=== PATIENT | female | born 1935 | race Caucasian/White ===

== ENCOUNTER 2016-09-13 19:46 | Emergency (ER) | payer MEDICARE ==
[~2016-09-13] VITALS: Ht 162.6 cm; Wt 77.1 kg
[2016-09-13 20:00] VITALS: BP 174/79
[2016-09-13] MEDS ORDERED: AMOX500C PO (20:11)
--- NOTE | 2016-09-13 20:11 | PHYS DOC ---
Past Medical History Past Medical History: GERD, High Cholesterol, Hypertension, Other Additional Past Medical Histor: NEUROPATHY Past Surgical History: Hysterectomy, Knee Replacement, Other Additional Past Surgical Histo: GASTRIC BYPASS Alcohol Use: Rarely Drug Use: None Adult General Chief Complaint Chief Complaint: COUGH HPI HPI Patient is a 80 year old female presents emergency department stating that she' s had a cough for the last 2 days. She states that she has some nasal congestion. She states that she went to the [facility] and they had recommended magnesium which she states that she check and seem to felt a little bit better. She states that she is having a cough that is nonproductive denies any fever, chills or any nausea or vomiting. Review of Systems Review of Systems Constitutional: Denies fever or chills [] Eyes: Denies change in visual acuity, redness, or eye pain [] HENT: Denies nasal congestion or sore throat [] Respiratory: cough denies shortness of breath [] Cardiovascular: No additional information not addressed in HPI [] GI: Denies abdominal pain, nausea, vomiting, bloody stools or diarrhea [] : Denies dysuria or hematuria [] Musculoskeletal: Denies back pain or joint pain [] Integument: Denies rash or skin lesions [] Neurologic: Denies headache, focal weakness or sensory changes [] Endocrine: Denies polyuria or polydipsia [] Allergies Allergies Allergies Coded Allergies Type Severity Reaction Last Updated Verified MILEY Inhibitors Allergy Intermediate 08/22/14 No bacitracin Allergy Intermediate 08/22/14 No iodine Allergy Intermediate 08/22/14 No neomycin Allergy Intermediate 08/22/14 No polymyxin B Allergy Intermediate 08/22/14 No Physical Exam Physical Exam Constitutional: Well developed, well nourished, no acute distress, non-toxic appearance. [] HENT: Normocephalic, atraumatic, bilateral external ears normal, oropharynx moist, no oral exudates, nose normal. Bilateral tympanic membranes appear to be normal. Patient with maxillary sinus tenderness, no frontal sinus tenderness noted. Patient with postnasal drip noted with redness noted no exudate no erythematous. Eyes: PERRLA, EOMI, conjunctiva normal, no discharge. [] Neck: Normal range of motion, no tenderness, supple, no stridor. [] Cardiovascular:Heart rate regular rhythm, no murmur [] Lungs & Thorax: Bilateral breath sounds clear to auscultation [] Skin: Warm, dry, no erythema, no rash. [] Back: No tenderness Extremities: No tenderness, no cyanosis, no clubbing, ROM intact, no edema. [] Neurologic: Alert and oriented X 3, normal motor function, normal sensory function, no focal deficits noted. [] Psychologic: Affect normal, judgement normal, mood normal. [] Current Patient Data Vital Signs Vital Signs Date Time Temp Pulse Resp B/P (MAP) Pulse Ox O2 Delivery O2 Flow Rate FiO2 09/13/16 20:00 98.8 75 18 95 Room Air 98.8 EKG EKG [] Radiology/Procedures Radiology/Procedures [] Course & Med Decision Making Course & Med Decision Making Pertinent Labs and Imaging studies reviewed. (See chart for details) Patient was recommended to take Coricidin HBP patient will be recommended to take medication as prescribed. Recommended plenty of fluids such as water propel or Gatorade. Recommended following up with primary care physician next 3- 5 days. Signs symptoms to return back to emergency department as been provided. [] Dragon Disclaimer Dragon Disclaimer This electronic medical record was generated, in whole or in part, using a voice recognition dictation system. Departure Departure Impression: Primary Impression: URI (upper respiratory infection) Disposition: 01 HOME, SELF-CARE Condition: STABLE Referrals: YOVANI BANDA (PCP) Patient Instructions: Upper Respiratory Infection, Adult, [id number] Additional Instructions: Activity as tolerated. Coricidin HBP may be taken for your congestion. Medication as prescribed. Continue her home medication as prescribed. Drink plenty of fluids. Follow-up to primary care physician in next 3-5 days. Return back to emergency prior signs symptoms become worse. Scripts Amoxicillin (AMOXICILLIN) 500 Mg Capsule 1 CAP PO BID, #20 CAP Prov: LUZ ROOT APRN 09/13/16 LUZ ROOT APRN Sep 13, 2016 20:11
== END 2016-09-13 20:20 | disposition home or self-care (01) ==
LOC: ER 19:46
DX: J06.9 Acute upper respiratory infection, unspecified (principal); K21.9 Gastro-esophageal reflux disease without esophagitis; E78.00 Pure hypercholesterolemia, unspecified; I10 Essential (primary) hypertension; G62.9 Polyneuropathy, unspecified; Z90.710 Acquired absence of both cervix and uterus; Z96.659 Presence of unspecified artificial knee joint; Z98.84 Bariatric surgery status; Z88.8 Allergy status to other drugs, medicaments and biological substances; Z88.1 Allergy status to other antibiotic agents
CPT/HCPCS: 99283

== ENCOUNTER 2016-12-27 11:53 | Emergency (ER) | payer MEDICARE ==
[~2016-12-27] VITALS: Ht 162.6 cm; Wt 77.1 kg
[~2016-12-27 11:53] MED LIST: AMOX500C PO
[2016-12-27 12:20] VITALS: BP 169/72
[2016-12-27] MEDS ORDERED: CEPH-264 PO (12:39)
--- NOTE | 2016-12-27 12:40 | PHYS DOC ---
Past Medical History Past Medical History: GERD, High Cholesterol, Hypertension, Other Additional Past Medical Histor: NEUROPATHY Past Surgical History: Hysterectomy, Knee Replacement, Other Additional Past Surgical Histo: GASTRIC BYPASS Alcohol Use: Rarely Drug Use: None Adult General Chief Complaint Chief Complaint: L[facility]ATION[facility] HPI Patient is a 81 year old female presents to the emergency department with complaints of a laceration to the right lower extremity. She states 2 weeks ago she was opening a car door when she sustained a laceration to the right lower extremity. She has been taking care of this at home by placing dressings and OpSite on it. She presents today because it has persistent bleeding was slightly redness around the wound. Review of Systems Review of Systems Constitutional: Denies fever or chills [] Eyes: Denies change in visual acuity, redness, or eye pain [] HENT: Denies nasal congestion or sore throat [] Respiratory: Denies cough or shortness of breath [] Cardiovascular: No additional information not addressed in HPI [] GI: Denies abdominal pain, nausea, vomiting, bloody stools or diarrhea [] : Denies dysuria or hematuria [] Musculoskeletal: Denies back pain or joint pain [] Integument: Laceration Neurologic: Denies headache, focal weakness or sensory changes [] Endocrine: Denies polyuria or polydipsia [] Allergies Allergies Allergies Coded Allergies Type Severity Reaction Last Updated Verified MILEY Inhibitors Allergy Intermediate 08/22/14 No bacitracin Allergy Intermediate 08/22/14 No iodine Allergy Intermediate 08/22/14 No neomycin Allergy Intermediate 08/22/14 No polymyxin B Allergy Intermediate 08/22/14 No Physical Exam Physical Exam Constitutional: Well developed, well nourished, no acute distress, non-toxic appearance. [] Neck: Normal range of motion, no tenderness, supple without lymphadenopathy, no stridor. [] Cardiovascular:Heart rate regular rhythm, no murmur [] Lungs & Thorax: Bilateral breath sounds clear to auscultation [] Skin: Right lower extremity, anterior to the lateral aspect of the tibia there is a 6 cm laceration with some granulation noted. There is noted foreign body embedded in the tissue. There is surrounding erythema approximately 2 cm. There is no purulent discharge. There is no active bleeding at time of exam. Extremities: No tenderness, no cyanosis, no clubbing, ROM intact, no edema. [] Neurologic: Alert and oriented X 3, normal motor function, normal sensory function, no focal deficits noted. [] Psychologic: Affect normal, judgement normal, mood normal. [] EKG EKG [] Radiology/Procedures Radiology/Procedures [] Course & Med Decision Making Course & Med Decision Making Pertinent Labs and Imaging studies reviewed. (See chart for details) []Agents wound was cleansed with Betadine and normal saline. The wound was debrided, foreign body removed. The underlying tissue is well granulated. The wound was dressed with a bulky bandage. Patient tolerated procedure well. Landing will be be to discharge patient home on Keflex with wound care instructions. Dragon Disclaimer Dragon Disclaimer This electronic medical record was generated, in whole or in part, using a voice recognition dictation system. Departure Departure Impression: Primary Impression: Leg wound, right Disposition: 01 HOME, SELF-CARE Condition: STABLE Referrals: YOVANI BANDA (PCP) Patient Instructions: Wound Care, [id number] Additional Instructions: Follow-up with your primary care provider in 3-5 days. Sooner proms rise. He may return to the emergency Department for new symptoms or concerns or worsening of current condition. Scripts Cephalexin (KEFLEX) 500 Mg Capsule 1 CAP PO TID, #30 CAP Prov: JOSTIN SORENSON APRN 12/27/16 Problem Qualifiers Primary Impression: Leg wound, right Encounter type: initial encounter Qualified Codes: S81.801A - Unspecified open wound, right lower leg, initial encounter JOSTIN SORENSON APRN Dec 27, 2016 12:40
== END 2016-12-27 12:46 | disposition home or self-care (01) ==
LOC: ER 11:53
DX: S81.821A Laceration with foreign body, right lower leg, initial encounter (principal); K21.9 Gastro-esophageal reflux disease without esophagitis; E78.00 Pure hypercholesterolemia, unspecified; I10 Essential (primary) hypertension; G62.9 Polyneuropathy, unspecified; Z90.710 Acquired absence of both cervix and uterus; Z96.659 Presence of unspecified artificial knee joint; Z98.84 Bariatric surgery status; Z88.8 Allergy status to other drugs, medicaments and biological substances; Z88.1 Allergy status to other antibiotic agents; W26.8XXA Contact with other sharp object(s), not elsewhere classified, initial encounter; Y93.89 Activity, other specified; Y92.89 Other specified places as the place of occurrence of the external cause; Y99.8 Other external cause status
CPT/HCPCS: 99284

== ENCOUNTER 2017-01-01 02:35 | Emergency (ER) | payer MEDICARE ==
[~2017-01-01] VITALS: Ht 162.6 cm; Wt 77.1 kg
[~2017-01-01 02:35] MED LIST changes: +CEPH-264 PO
[2017-01-01 02:46] VITALS: BP 196/92
--- NOTE | 2017-01-01 03:22 | PHYS DOC ---
Past Medical History Past Medical History: GERD, High Cholesterol, Hypertension, Other Additional Past Medical Histor: NEUROPATHY Past Surgical History: Hysterectomy, Knee Replacement, Other Additional Past Surgical Histo: GASTRIC BYPASS Alcohol Use: Rarely Drug Use: None Adult General Chief Complaint Chief Complaint: MECHANICAL FALL HPI HPI Patient is a 81 year old female who presents with complaint of head injury. Patient states that she awoke in the middle the night shortly prior to arrival after her phone started ringing. Patient tried to answer the phone, however upon getting up to the phone she lost her footing and fell, hitting the back of her head on a coffee table in the process. Patient denies loss of consciousness. Patient denies any other injuries. The patient came into the emergency department due to a laceration suffered as result of the fall. Patient otherwise denies any injuries. Patient states that she has chronically poor balance but states that this has not changed significantly over the past few days. Patient is not on any blood thinners. Review of Systems Review of Systems Constitutional: Denies fever or chills [] Eyes: Denies change in visual acuity, redness, or eye pain [] HENT: Head injury, scalp laceration.[] Respiratory: Denies cough or shortness of breath [] Cardiovascular: Edema, denies chest pain[] GI: Denies abdominal pain, nausea, vomiting, bloody stools or diarrhea [] : Denies dysuria or hematuria [] Musculoskeletal: Denies back pain or joint pain [] Integument: Denies rash or skin lesions [] Neurologic: Denies headache, focal weakness or sensory changes [] Current Medications Current Medications Current Medications Medications (Trade) Dose Ordered Sig/Barbara Start Time Stop Time Status Last Admin Dose Admin Lidocaine/ Epinephrine (Let Topical) 3 ml 1X ONCE 01/01/17 03:30 01/01/17 03:31 DC 01/01/17 03:23 3 ML Allergies Allergies Allergies Coded Allergies Type Severity Reaction Last Updated Verified MILEY Inhibitors Allergy Intermediate 08/22/14 No bacitracin Allergy Intermediate 08/22/14 No iodine Allergy Intermediate 08/22/14 No neomycin Allergy Intermediate 08/22/14 No polymyxin B Allergy Intermediate 08/22/14 No Physical Exam Physical Exam Constitutional: Alert, afebrile, appears in mild discomfort. [] HENT: Normocephalic, 1.5 cm linear occipital laceration with 2 cm underlying scalp hematoma, bilateral external ears normal, oropharynx moist, no oral exudates, nose normal. [] Eyes: PERRLA, EOMI, conjunctiva normal, no discharge. [] Neck: Normal range of motion, no tenderness, supple, no stridor. [] Cardiovascular:Heart rate regular rhythm, no murmur [] Lungs & Thorax: Bilateral breath sounds clear to auscultation [] Abdomen: Bowel sounds normal, soft, no tenderness, no masses, no pulsatile masses. [] Skin: Warm, dry, no erythema, no rash. [] Back: No tenderness, no CVA tenderness. [] Extremities: No tenderness, no cyanosis, no clubbing, ROM intact, 1+ pitting edema in the bilateral lower extremities. [] Neurologic: Alert and oriented X 3, normal motor function, normal sensory function, no focal deficits noted. [] Current Patient Data Vital Signs Vital Signs Date Time Temp Pulse Resp B/P (MAP) Pulse Ox O2 Delivery O2 Flow Rate FiO2 01/01/17 02:46 98.3 66 16 97 Room Air 98.3 EKG EKG Not performed[] Radiology/Procedures Radiology/Procedures [facility] [address] [place] [address] IMAGING REPORT Signed PATIENT: JANIYA OTOOLE ACCOUNT: [id number] : 1935 LOCATION: ER AGE: 81 SEX: F EXAM STATUS: REG ER ORD. PHYSICIAN: ANABEL BENNETT MD REASON: fall, head injury PROCEDURE: CT HEAD WO CONTRAST CT head without contrast 01/01/2017 CLINICAL INDICATION: Fall, head trauma. COMPARISON: CT head 10/06/2014. TECHNIQUE: Multiple CT images of the head were obtained without contrast according to standard protocol. *One or more of the following individualized dose reduction techniques were utilized for this examination: 1. Automated exposure control. 2. Adjustment of the mA and/or kV according to patient size. 3. Use of iterative reconstruction technique. Findings: Head: There is mild prominence of the ventricles and subarachnoid spaces compatible with mild age-related involutional changes. No acute intracranial hemorrhage or extra-axial fluid collection. There is stable punctate low-attenuation in the right posterior limb internal capsule, may represent old lacunar infarct. Knox-white matter interfaces are otherwise maintained. The basal cisterns are patent. No midline shift or mass effect. There is partial opacification of the right maxillary sinus with internal high density. IMPRESSION: 1. No acute intracranial hemorrhage or mass effect. 2. 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 3. Partial opacification of right maxillary sinus with internal hypodensity which can be seen with fungal sinusitis. Electronically signed by: Stalin Sue MD (01/01/2017 3:59 AM) [facility] [place] DICTATED and SIGNED BY: STALIN SUE MD DATE: 01/01/17 0354 CC: YOVANI BANDA; ANABEL BENNETT MD ~ [] Course & Med Decision Making Course & Med Decision Making Pertinent Labs and Imaging studies reviewed. (See chart for details) CT negative for acute intracranial bleeding. Patient did have an incidental finding of right sinus opacification. Spoke with patient regarding this finding. I have low suspicion the patient has active sinusitis as patient denies any sinus pressure, pain, or associated fever. I did recommend that she follow-up with her primary doctor for this finding for further evaluation as outpatient. The patient's laceration was repaired in the emergency department as outlined in the procedure note. Recommended that the patient follow-up with her primary doctor in 5-7 days for removal of nancy. Advised return emergency department for any worsening symptoms. Patient was understanding and in agreement with treatment plan. Dragon Disclaimer Dragon Disclaimer This electronic medical record was generated, in whole or in part, using a voice recognition dictation system. Laceration Repair Lac Repair Indication: Scalp laceration Procedure: The patient was placed in the appropriate position and anesthesia around the laceration was achieved with topical application of LET. The area was then cleansed with saline soaked gauze. The laceration was closed using skin nancy. The wound area was then dressed with gauze and Kerlix. Total repaired wound length: 2 cm. Other Items: Stable count: 3 The patient tolerated the procedure without difficulty. Complications: None. Departure Departure Impression: Primary Impression: Scalp laceration Additional Impression: Closed head injury Disposition: 01 HOME, SELF-CARE Condition: IMPROVED Referrals: YOVANI BANDA (PCP) Patient Instructions: Head Injury, Adult, Laceration Care, Adult, Staple Wound Closure, [id number] Additional Instructions: Follow-up in 5-7 days with your primary doctor for removal of your nancy. Your CT scan showed an incidental finding of an abnormal lesion in your right sinus. It is recommended that she follow-up with your primary doctor for reevaluation of this finding. Return to the emergency department for any worsening symptoms. Problem Qualifiers Primary Impression: Scalp laceration Encounter type: initial encounter Qualified Codes: S01.01XA - Laceration without foreign body of scalp, initial encounter Additional Impression: Closed head injury Encounter type: initial encounter Qualified Codes: S09.90XA - Unspecified injury of head, initial encounter ANABEL BENNETT MD Jan 01, 2017 03:22
[2017-01-01] MEDS ORDERED: LIDOCAINE/EPI/TETRACAINE TOPICAL GEL 3 ML. TP ONE (03:30)
--- NOTE | 2017-01-01 04:02 | RAD ---
CT head without contrast 01/01/2017 CLINICAL INDICATION: Fall, head trauma. COMPARISON: CT head 10/06/2014. TECHNIQUE: Multiple CT images of the head were obtained without contrast according to standard protocol. *One or more of the following individualized dose reduction techniques were utilized for this examination: 1. Automated exposure control. 2. Adjustment of the mA and/or kV according to patient size. 3. Use of iterative reconstruction technique. Findings: Head: There is mild prominence of the ventricles and subarachnoid spaces compatible with mild age-related involutional changes. No acute intracranial hemorrhage or extra-axial fluid collection. There is stable punctate low-attenuation in the right posterior limb internal capsule, may represent old lacunar infarct. Knox-white matter interfaces are otherwise maintained. The basal cisterns are patent. No midline shift or mass effect. There is partial opacification of the right maxillary sinus with internal high density. IMPRESSION: 1. No acute intracranial hemorrhage or mass effect. 2. 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 3. Partial opacification of right maxillary sinus with internal hypodensity which can be seen with fungal sinusitis. Electronically signed by: Tulio Sue MD (01/01/2017 3:59 AM) [facility]
== END 2017-01-01 04:17 | disposition home or self-care (01) ==
LOC: ER 02:35
DX: S01.01XA Laceration without foreign body of scalp, initial encounter (principal); K21.9 Gastro-esophageal reflux disease without esophagitis; E78.00 Pure hypercholesterolemia, unspecified; I10 Essential (primary) hypertension; G62.9 Polyneuropathy, unspecified; Z98.84 Bariatric surgery status; Z88.1 Allergy status to other antibiotic agents; Z88.8 Allergy status to other drugs, medicaments and biological substances; W01.190A Fall on same level from slipping, tripping and stumbling with subsequent striking against furniture, initial encounter; Y93.89 Activity, other specified; Y92.89 Other specified places as the place of occurrence of the external cause; Y99.8 Other external cause status
CPT/HCPCS: 12001; 70450; 99284-25

== ENCOUNTER → 2017-01-15 | Outpatient (CLI) | payer MEDICARE ==
[2017-01-01 02:46] VITALS: BP 196/92
[~2017-01-15] MED LIST changes: +HYDR-971 PO
== END | disposition home or self-care (01) ==
LOC: PMGWOUND 10:56
PROVIDERS: ATTEND Emergency Medicine Undersea and Hyperbaric Medicine
DX: I87.311 Chronic venous hypertension (idiopathic) with ulcer of right lower extremity (principal); L97.212 Non-pressure chronic ulcer of right calf with fat layer exposed; K21.9 Gastro-esophageal reflux disease without esophagitis; G62.9 Polyneuropathy, unspecified; E66.8 Other obesity; I13.0 Hypertensive heart and chronic kidney disease with heart failure and stage 1 through stage 4 chronic kidney disease, or unspecified chronic kidney disease; N18.4 Chronic kidney disease, stage 4 (severe); I50.32 Chronic diastolic (congestive) heart failure; I73.9 Peripheral vascular disease, unspecified; F32.9 Major depressive disorder, single episode, unspecified; E78.00 Pure hypercholesterolemia, unspecified; E03.9 Hypothyroidism, unspecified; Z90.710 Acquired absence of both cervix and uterus; Z72.89 Other problems related to lifestyle
CPT/HCPCS: 97597

== ENCOUNTER → 2017-01-22 | Outpatient (CLI) | payer MEDICARE ==
[2017-01-01 02:46] VITALS: BP 196/92
[~2017-01-22] MED LIST changes: -HYDR-971 PO
== END | disposition home or self-care (01) ==
LOC: PMGWOUND 11:05
PROVIDERS: ATTEND Emergency Medicine Undersea and Hyperbaric Medicine
DX: I87.311 Chronic venous hypertension (idiopathic) with ulcer of right lower extremity (principal); L97.212 Non-pressure chronic ulcer of right calf with fat layer exposed; I13.0 Hypertensive heart and chronic kidney disease with heart failure and stage 1 through stage 4 chronic kidney disease, or unspecified chronic kidney disease; N18.4 Chronic kidney disease, stage 4 (severe); I50.32 Chronic diastolic (congestive) heart failure; K21.9 Gastro-esophageal reflux disease without esophagitis; E03.9 Hypothyroidism, unspecified; F32.9 Major depressive disorder, single episode, unspecified; E66.8 Other obesity; I73.9 Peripheral vascular disease, unspecified; G62.9 Polyneuropathy, unspecified; E78.00 Pure hypercholesterolemia, unspecified; Z96.659 Presence of unspecified artificial knee joint; Z72.89 Other problems related to lifestyle; Z90.710 Acquired absence of both cervix and uterus
CPT/HCPCS: 11042; 29581

== ENCOUNTER → 2017-01-25 | Outpatient (CLI) | payer MEDICARE ==
[2017-01-01 02:46] VITALS: BP 196/92
== END | disposition home or self-care (01) ==
LOC: PMGWOUND 11:29
PROVIDERS: ATTEND Preventive Medicine Undersea and Hyperbaric Medicine
DX: I87.311 Chronic venous hypertension (idiopathic) with ulcer of right lower extremity (principal); L97.212 Non-pressure chronic ulcer of right calf with fat layer exposed; I13.0 Hypertensive heart and chronic kidney disease with heart failure and stage 1 through stage 4 chronic kidney disease, or unspecified chronic kidney disease; N18.4 Chronic kidney disease, stage 4 (severe); I50.32 Chronic diastolic (congestive) heart failure; K21.9 Gastro-esophageal reflux disease without esophagitis; I73.9 Peripheral vascular disease, unspecified; F32.9 Major depressive disorder, single episode, unspecified; E78.00 Pure hypercholesterolemia, unspecified; E03.9 Hypothyroidism, unspecified; Z72.89 Other problems related to lifestyle
CPT/HCPCS: 29581

== ENCOUNTER → 2017-01-29 | Outpatient (CLI) | payer MEDICARE ==
[2017-01-01 02:46] VITALS: BP 196/92
== END | disposition home or self-care (01) ==
LOC: PMGWOUND 11:04
PROVIDERS: ATTEND Emergency Medicine Undersea and Hyperbaric Medicine
DX: I87.311 Chronic venous hypertension (idiopathic) with ulcer of right lower extremity (principal); L97.212 Non-pressure chronic ulcer of right calf with fat layer exposed; S51.811D Laceration without foreign body of right forearm, subsequent encounter; K21.9 Gastro-esophageal reflux disease without esophagitis; E03.9 Hypothyroidism, unspecified; F32.9 Major depressive disorder, single episode, unspecified; E78.00 Pure hypercholesterolemia, unspecified; I73.9 Peripheral vascular disease, unspecified; I13.0 Hypertensive heart and chronic kidney disease with heart failure and stage 1 through stage 4 chronic kidney disease, or unspecified chronic kidney disease; N18.4 Chronic kidney disease, stage 4 (severe); E66.8 Other obesity; G62.9 Polyneuropathy, unspecified; Z90.710 Acquired absence of both cervix and uterus; Z72.89 Other problems related to lifestyle; X58.XXXD Exposure to other specified factors, subsequent encounter
CPT/HCPCS: 29581; 97597

== ENCOUNTER → 2017-02-05 | Outpatient (CLI) | payer MEDICARE | END | disposition home or self-care (01) | LOC: PMGWOUND 11:15 | PROVIDERS: ATTEND Emergency Medicine Undersea and Hyperbaric Medicine | DX: I87.311 Chronic venous hypertension (idiopathic) with ulcer of right lower extremity (principal); E11.622 Type 2 diabetes mellitus with other skin ulcer; L97.212 Non-pressure chronic ulcer of right calf with fat layer exposed; S51.811D Laceration without foreign body of right forearm, subsequent encounter; E11.22 Type 2 diabetes mellitus with diabetic chronic kidney disease; I13.0 Hypertensive heart and chronic kidney disease with heart failure and stage 1 through stage 4 chronic kidney disease, or unspecified chronic kidney disease; N18.4 Chronic kidney disease, stage 4 (severe); I50.32 Chronic diastolic (congestive) heart failure; K21.9 Gastro-esophageal reflux disease without esophagitis; E03.9 Hypothyroidism, unspecified; F32.9 Major depressive disorder, single episode, unspecified; E11.51 Type 2 diabetes mellitus with diabetic peripheral angiopathy without gangrene; E11.42 Type 2 diabetes mellitus with diabetic polyneuropathy; E66.8 Other obesity; E78.00 Pure hypercholesterolemia, unspecified; Z99.2 Dependence on renal dialysis; Z79.4 Long term (current) use of insulin; Z72.89 Other problems related to lifestyle; Z90.710 Acquired absence of both cervix and uterus; X58.XXXD Exposure to other specified factors, subsequent encounter | CPT/HCPCS: 99214 ==

== ENCOUNTER 2017-03-30 17:24 | Emergency (ER) | payer MEDICARE ==
[~2017-03-30] VITALS: Ht 162.6 cm; Wt 77.1 kg
[2017-03-30 18:04] VITALS: BP 221/108
[2017-03-30] MEDS ORDERED: oxyCODONE/APAP 5/325 1 TAB TABLET PO ONE (18:15)
--- NOTE | 2017-03-30 19:38 | PHYS DOC ---
Past Medical History Past Medical History: GERD, High Cholesterol, Hypertension, Other Additional Past Medical Histor: NEUROPATHY Past Surgical History: Hysterectomy, Knee Replacement, Other Additional Past Surgical Histo: GASTRIC BYPASS Alcohol Use: Rarely Drug Use: None Adult General Chief Complaint Chief Complaint: MECHANICAL FALL HPI HPI Patient is a 81 year old female who presents with wrist pain and pain in her nose after she tripped over her walker today and fell. She states that she hit the walker with her face. She is worried that she broke her right wrist and her nose. She denies loss of consciousness, headache, vision changes or changes in gait. She states that this accident occurred approximately 1:00 today when she was using her walker to go to the restroom. When her daughter got to her house this evening she brought her to the emergency department. Review of Systems Review of Systems Constitutional: Denies fever or chills [] Eyes: Denies change in visual acuity, redness, or eye pain [] HENT: Denies nasal congestion or sore throat [] Respiratory: Denies cough or shortness of breath [] Cardiovascular: No additional information not addressed in HPI [] GI: Denies abdominal pain, nausea, vomiting, bloody stools or diarrhea [] Musculoskeletal: See history of present illness Integument: Small laceration to her nose Neurologic: Denies headache, focal weakness or sensory changes [] Endocrine: Denies polyuria or polydipsia [] All other systems were reviewed and found to be within normal limits, except as documented in this note. Current Medications Current Medications Current Medications Medications (Trade) Dose Ordered Sig/Barbara Start Time Stop Time Status Last Admin Dose Admin Oxycodone/ Acetaminophen (Percocet 5/325) 1 tab 1X ONCE 03/30/17 18:15 03/30/17 18:16 DC 03/30/17 18:17 1 TAB Allergies Allergies Allergies Coded Allergies Type Severity Reaction Last Updated Verified MILEY Inhibitors Allergy Intermediate 08/22/14 No bacitracin Allergy Intermediate 08/22/14 No iodine Allergy Intermediate 08/22/14 No neomycin Allergy Intermediate 08/22/14 No polymyxin B Allergy Intermediate 08/22/14 No Physical Exam Physical Exam Constitutional: Well developed, well nourished, no acute distress, non-toxic appearance. [] HENT: Normocephalic, bilateral external ears normal, oropharynx moist, no oral exudates, there is no gross deformity to the patient's nose Eyes: PERRLA, EOMI, conjunctiva normal, no discharge. [] Neck: Normal range of motion, no tenderness, supple, no stridor. [] Cardiovascular:Heart rate regular rhythm, no murmur [] Lungs & Thorax: Bilateral breath sounds clear to auscultation [] Abdomen: Bowel sounds normal, soft, no tenderness, no masses, no pulsatile masses. [] Skin: Patient has a small laceration to the bridge of her nose with dried blood. Back: No tenderness, no CVA tenderness. [] Extremities: tenderness to right wrist, no deformity, no cyanosis, no clubbing, ROM is limited due to pain, no edema, Neurologic: Alert and oriented X 3, normal motor function, normal sensory function, no focal deficits noted. [] Psychologic: Affect normal, judgement normal, mood normal. [] Current Patient Data Vital Signs Vital Signs Date Time Temp Pulse Resp B/P (MAP) Pulse Ox O2 Delivery O2 Flow Rate FiO2 03/30/17 18:04 98.8 86 18 221/108 (145) 98 Room Air 98.8 EKG EKG [] Radiology/Procedures Radiology/Procedures []PATIENT: JANIYA OTOOLE ACCOUNT: [id number] : 1935 LOCATION: ER AGE: 81 SEX: F EXAM STATUS: REG ER ORD. PHYSICIAN: SHARON LEON APRN REASON: fall with facial trauma PROCEDURE: CT HEAD AND MAXILLOFACIAL WO CT HEAD AND MAXILLOFACIAL WO dated 03/30/2017 7:06 PM Indication:fall, nasal injury, priors sent Comparison: 01/01/2017. Technique: Noncontrast images were performed. Sagittal and coronal reconstructions of the facial bones were obtained. One or more of the following individualized dose reduction techniques were utilized for this examination: 1. Automated exposure control 2. Adjustment of the mA and/or kV according to patient size 3. Use of iterative reconstruction technique Findings: CT head: No intracranial hemorrhage or abnormal extra-axial fluid collection is seen. No new area of abnormal density is identified. The ventricles and basilar cisterns are normally positioned. Bone windows show no apparent fracture of the skull. Facial bones: There appears to be slight depression of the nasal arch, but there was a similar appearance previously. There may be slightly greater displacement. No other facial fracture is seen. The orbital floors appear intact. Nasal septum is slightly deviated toward the right. There is now extensive opacification of the right maxillary sinus IMPRESSION: No acute abnormality in the brain. Questionable slightly greater depressed nasal fracture since previous study. No other facial fracture is seen. Electronically signed by: Jeff Spangler Jr., MD (03/30/2017 7:56 PM) [facility] [place] DICTATED and SIGNED BY: JEFF SPANGLER Jr, MD DATE: 03/30/171950 CC: YOVANI BANDA; SHARON LEON APRN; NON,STAFF ~ Imaging does show a distal radial fracture to the patient's right wrist that is not displaced. This x-ray was read in the emergency department by Dr. Jameson Course & Med Decision Making Course & Med Decision Making Pertinent Labs and Imaging studies reviewed. (See chart for details) []1. Nasal fracture 2. Distal radial fracture Patient has been placed in a splint with a Steri-Strip to the bridge of her nose. She states that she feels much improved now that she is splinted. She is to follow-up with orthopedic surgeon for further evaluation and treatment of this fracture. She was also given a small amount of pain medication. She knows not to drive or operate heavy machinery while taking this medication. She is to return to the ED if worsening. Dragon Disclaimer Dragon Disclaimer This electronic medical record was generated, in whole or in part, using a voice recognition dictation system. Departure Departure Referrals: YOVANI BANDA (PCP) Scripts Hydrocodone/Apap 5-325 (NORCO 5-325 TABLET) 1 Each Tablet 1 TAB PO PRN Q6HRS Y for PAIN, #10 TAB 0 Refills Prov: SHARON LEON APRN 03/30/17 SHARON LEON APRN Mar 30, 2017 19:38
--- NOTE | 2017-03-30 19:59 | RAD ---
CT HEAD AND MAXILLOFACIAL WO dated 03/30/2017 7:06 PM Indication:fall, nasal injury, priors sent Comparison: 01/01/2017. Technique: Noncontrast images were performed. Sagittal and coronal reconstructions of the facial bones were obtained. One or more of the following individualized dose reduction techniques were utilized for this examination: 1. Automated exposure control 2. Adjustment of the mA and/or kV according to patient size 3. Use of iterative reconstruction technique Findings: CT head: No intracranial hemorrhage or abnormal extra-axial fluid collection is seen. No new area of abnormal density is identified. The ventricles and basilar cisterns are normally positioned. Bone windows show no apparent fracture of the skull. Facial bones: There appears to be slight depression of the nasal arch, but there was a similar appearance previously. There may be slightly greater displacement. No other facial fracture is seen. The orbital floors appear intact. Nasal septum is slightly deviated toward the right. There is now extensive opacification of the right maxillary sinus IMPRESSION: No acute abnormality in the brain. Questionable slightly greater depressed nasal fracture since previous study. No other facial fracture is seen. Electronically signed by: Rico Spangler Jr., MD (03/30/2017 7:56 PM) [id number]
[2017-03-30] MEDS ORDERED: HYDR-971 PO (20:13)
--- NOTE | 2017-03-31 08:13 | RAD ---
3 view nasal bone 16 2016 Clinical indication: Fall with nose pain. Comparison same day CT maxillofacial. Findings: There may be a minimally depressed nasal bone fractures best seen on the lateral view. The visualized paranasal sinuses are well aerated. Dental amalgam is noted. Impression: Possible minimally depressed nasal bone fracture. Correlation with same-day CT maxillofacial is recommended.
--- NOTE | 2017-03-31 08:20 | RAD ---
3 view left wrist 03/30/2017 Clinical indication: Fall with left wrist pain. Comparison: None. Findings: There is diffuse bony demineralization. No evidence of acute fracture or traumatic malalignment. 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 Distal radius and ulna are intact. The soft tissues are unremarkable. Impression: 1. No evidence of acute fracture or traumatic malalignment. 2. Osteopenia. 3. Wrist osteoarthritis, as detailed.
== END 2017-03-30 20:24 | disposition home or self-care (01) ==
LOC: ER 17:24
DX: S52.501A Unspecified fracture of the lower end of right radius, initial encounter for closed fracture (principal); S02.2XXA Fracture of nasal bones, initial encounter for closed fracture; E78.00 Pure hypercholesterolemia, unspecified; I10 Essential (primary) hypertension; Z88.1 Allergy status to other antibiotic agents; K21.9 Gastro-esophageal reflux disease without esophagitis; Z88.8 Allergy status to other drugs, medicaments and biological substances; Z91.041 Radiographic dye allergy status; W22.8XXA Striking against or struck by other objects, initial encounter; Y93.89 Activity, other specified; Y99.8 Other external cause status; Y92.89 Other specified places as the place of occurrence of the external cause
CPT/HCPCS: 29125; 70150; 70450; 70486; 73110; 99284-25

== ENCOUNTER 2017-08-14 15:59 | Emergency (ER) | payer MEDICARE ==
[2017-08-14] MEDS: ACETAMINOPHEN/CODEINE 300/30MG TABLET. PO (17:07)
== END 2017-08-14 19:15 | disposition home or self-care (01) ==
LOC: ER 15:59
DX: S51.011A Laceration without foreign body of right elbow, initial encounter (principal); S01.111A Laceration without foreign body of right eyelid and periocular area, initial encounter; S20.212A Contusion of left front wall of thorax, initial encounter; S09.90XA Unspecified injury of head, initial encounter; G47.30 Sleep apnea, unspecified; E78.00 Pure hypercholesterolemia, unspecified; I10 Essential (primary) hypertension; K21.9 Gastro-esophageal reflux disease without esophagitis; Z88.1 Allergy status to other antibiotic agents; Z88.8 Allergy status to other drugs, medicaments and biological substances; Z90.710 Acquired absence of both cervix and uterus; W19.XXXA Unspecified fall, initial encounter; Y93.89 Activity, other specified; Y92.128 Other place in nursing home as the place of occurrence of the external cause; Y99.8 Other external cause status
CPT/HCPCS: 70450; 71101; 74176; 99285-25

== ENCOUNTER 2017-09-06 12:26 | Emergency (ER) | payer MEDICARE ==
[2017-09-06] MEDS: MUPIROCIN 2 % TOPICAL CREAM 15GM TUBE. TP ×2 (13:00)
== END 2017-09-06 13:08 | disposition home or self-care (01) ==
LOC: ER 12:26
DX: S81.802A Unspecified open wound, left lower leg, initial encounter (principal); R60.0 Localized edema; K21.9 Gastro-esophageal reflux disease without esophagitis; E78.00 Pure hypercholesterolemia, unspecified; I10 Essential (primary) hypertension; Z88.1 Allergy status to other antibiotic agents; Z88.8 Allergy status to other drugs, medicaments and biological substances; Z90.710 Acquired absence of both cervix and uterus; Z96.659 Presence of unspecified artificial knee joint; Z98.84 Bariatric surgery status; X58.XXXA Exposure to other specified factors, initial encounter; Y93.89 Activity, other specified; Y92.89 Other specified places as the place of occurrence of the external cause; Y99.8 Other external cause status
CPT/HCPCS: 99283; 99284

== ENCOUNTER 2017-09-07 09:53 | Inpatient (IN) | payer MEDICARE ==
[2017-09-07] MEDS ORDERED: ONDANSETRON PF 4 MG/2 ML VIAL. IV ×2 (12:15→15:00)
[2017-09-07] MEDS ORDERED: ACETAMINOPHEN 325 MG TABLET. PO ×2 (12:15→15:00)
[2017-09-07] MEDS ORDERED: MORPHINE SULFATE 4 MG/ML DISP.SYRIN. IV ×2 (12:15→15:00)
[2017-09-07] MEDS ORDERED: hydrALAZINE 20 MG/ML VIAL. IVP (15:00)
[2017-09-07] MEDS ORDERED: DOCUSATE SODIUM 100 MG CAPSULE. PO (15:00)
[2017-09-07 16:20] LABS: ANION GAP 11 (6-14); BLOOD UREA NITROGEN 28 mg/dL (7-20); CALCIUM 7.8 mg/dL (8.5-10.1); CARBON DIOXIDE 21 mmol/L (21-32); CHLORIDE 108 mmol/L (98-107); CREATININE 1.9 mg/dL (0.6-1.0); GFR 25.2; GLUCOSE 141 mg/dL (70-99); POTASSIUM 3.2 mmol/L (3.5-5.1); SODIUM 140 mmol/L (136-145)
[2017-09-07] MEDS: BUMETANIDE 1 MG TABLET. PO (17:10)
[2017-09-07] MEDS: PANTOPRAZOLE 40 MG TABLET.DR. PO (17:10)
[2017-09-07] MEDS: SUCRALFATE 1 GM TABLET. PO ×2 (17:10→21:00)
[2017-09-07] MEDS: METOPROLOL TART IMMED RELEASE 25 MG TABLET. PO (20:46)
[2017-09-07] MEDS: MUPIROCIN 2 % TOPICAL CREAM 15GM TUBE. TP (20:46)
[2017-09-07] MEDS: ATORVASTATIN CALCIUM 10 MG TABLET. PO (21:00)
[2017-09-07] MEDS ORDERED: METOPROLOL TART IMMED RELEASE 25 MG TABLET. PO (21:00)
[2017-09-07] MEDS ORDERED: CALCIUM CARB/VIT D3 500/200 TABLET. PO (21:00)
[2017-09-07 21:17] LABS: BASO % 0 % (0-3); EOS % 0 % (0-3); HEMATOCRIT 33.3 % (36.0-47.0); HEMOGLOBIN 10.5 g/dL (12.0-15.5); LYMPH # 0.9 x10^3/uL (1.0-4.8); LYMPH % 6 % (24-48); MEAN CORPUSCULAR HEMOGLOBIN 31 pg (25-35); MEAN CORPUSCULAR HGB CONC 32 g/dL (31-37); MEAN CORPUSCULAR VOLUME 97 fL (79-100); MONO # 0.6 x10^3/uL (0.0-1.1); MONO % 4 % (0-9); NEUT # 14.4 x10^3uL (1.8-7.7); NEUT % 90 % (31-73); PLATELET COUNT 265 x10^3/uL (140-400); RED BLOOD COUNT 3.44 x10^6/uL (3.50-5.40); RED CELL DISTRIBUTION WIDTH 21.3 % (11.5-14.5)
[2017-09-07 21:21] LABS: ADD MAN DIFF? YES
[2017-09-07 21:46] LABS: % BANDS 8 % (0-9); % LYMPHS 3 % (24-48); % MONOS 1 % (0-10); % SEGS 88 % (35-66); PLT ESTIMATE ADEQUATE (ADEQUATE)
[2017-09-07 21:48] LABS: ANISOCYTOSIS MOD; POLYCHROMASIA SLIGHT; TOXIC GRANULATION SLIGHT
[2017-09-08 04:27] LABS: ADD MAN DIFF? NO
[2017-09-08 04:51] LABS: BASO % 0 % (0-3); EOS % 0 % (0-3); HEMATOCRIT 33.5 % (36.0-47.0); HEMOGLOBIN 10.5 g/dL (12.0-15.5); LYMPH % 6 % (24-48); MEAN CORPUSCULAR HEMOGLOBIN 31 pg (25-35); MEAN CORPUSCULAR HGB CONC 31 g/dL (31-37); MEAN CORPUSCULAR VOLUME 98 fL (79-100); MONO # 0.6 x10^3/uL (0.0-1.1); MONO % 4 % (0-9); NEUT # 14.1 x10^3uL (1.8-7.7); NEUT % 90 % (31-73); PLATELET COUNT 267 x10^3/uL (140-400); RED BLOOD COUNT 3.42 x10^6/uL (3.50-5.40); RED CELL DISTRIBUTION WIDTH 21.8 % (11.5-14.5); WHITE BLOOD COUNT 15.8 x10^3/uL (4.0-11.0)
[2017-09-08 05:21] LABS: ANION GAP 12 (6-14); BLOOD UREA NITROGEN 27 mg/dL (7-20); CALCIUM 7.8 mg/dL (8.5-10.1); CARBON DIOXIDE 25 mmol/L (21-32); CHLORIDE 107 mmol/L (98-107); CREATININE 1.8 mg/dL (0.6-1.0); GFR 26.9; GLUCOSE 80 mg/dL (70-99); SODIUM 144 mmol/L (136-145)
[2017-09-08] MEDS: GABAPENTIN 300 MG CAPSULE. PO (08:22)
[2017-09-08] MEDS: buPROPion XL 150 MG TAB.ER.24H. PO (08:22)
[2017-09-08] MEDS: BUMETANIDE 1 MG TABLET. PO ×2 (08:22→16:29)
[2017-09-08] MEDS: SUCRALFATE 1 GM TABLET. PO ×4 (08:22→20:24)
[2017-09-08] MEDS: LEVOTHYROXINE 137 MCG TABLET PO (08:22)
[2017-09-08] MEDS: METOPROLOL TART IMMED RELEASE 25 MG TABLET. PO ×2 (08:23→20:24)
[2017-09-08] MEDS: MUPIROCIN 2 % TOPICAL CREAM 15GM TUBE. TP ×3 (08:23→20:36)
[2017-09-08] MEDS: CALCIUM CARB/VIT D3 500/200 TABLET. PO (08:24)
[2017-09-08] MEDS: DIGOXIN 250 MCG TABLET. PO (08:24)
[2017-09-08] MEDS: FERROUS SULFATE 325 MG TABLET. PO (08:24)
[2017-09-08] MEDS: FOLIC ACID 1 MG TABLET. PO (08:24)
[2017-09-08] MEDS: PANTOPRAZOLE 40 MG TABLET.DR. PO ×2 (08:24→16:29)
[2017-09-08] MEDS ORDERED: GABAPENTIN 300 MG CAPSULE. PO (09:00)
[2017-09-08] MEDS ORDERED: LIDOCAINE (700MG/PATCH) PATCH. TD (09:00)
[2017-09-08] MEDS: POTASSIUM CHLORIDE 20 MEQ TABLET.ER. PO (12:47)
[2017-09-08 13:56] LABS: PROCALCITONIN < 0.10 ng/mL (0.00-0.10)
[2017-09-08 20:10] LABS: BILIRUBIN,URINE NEGATIVE (NEG); CLARITY,URINE CLEAR; COLOR,URINE YELLOW; GLUCOSE,URINE NEGATIVE (NEG); NITRITE,URINE NEGATIVE (NEG); PH,URINE 5.5; PROTEIN,URINE NEGATIVE (NEG-TRACE); UROBILINOGEN,URINE 0.2 mg/dL (0.2 mg/dL)
[2017-09-08 20:21] LABS: BACTERIA,URINE MODERATE /HPF (0-FEW); HYALINE CASTS, URINE FEW /HPF; RBC,URINE 0 /HPF (0-2); SQUAMOUS EPITHELIAL CELL,UR FEW /LPF
[2017-09-08] MEDS: ATORVASTATIN CALCIUM 10 MG TABLET. PO (20:24)
[2017-09-08] MEDS: HYDROcodone/APAP 5/325MG 1 TAB TABLET PO (20:24)
[2017-09-09 03:57] LABS: ADD MAN DIFF? NO
[2017-09-09 04:09] LABS: BASO % 0 % (0-3); EOS # 0.1 x10^3/uL (0.0-0.7); EOS % 1 % (0-3); HEMATOCRIT 32.3 % (36.0-47.0); HEMOGLOBIN 10.4 g/dL (12.0-15.5); LYMPH # 0.8 x10^3/uL (1.0-4.8); LYMPH % 6 % (24-48); MEAN CORPUSCULAR HEMOGLOBIN 31 pg (25-35); MEAN CORPUSCULAR HGB CONC 32 g/dL (31-37); MEAN CORPUSCULAR VOLUME 96 fL (79-100); MONO # 0.6 x10^3/uL (0.0-1.1); MONO % 5 % (0-9); NEUT # 11.6 x10^3uL (1.8-7.7); NEUT % 89 % (31-73); PLATELET COUNT 232 x10^3/uL (140-400); RED BLOOD COUNT 3.36 x10^6/uL (3.50-5.40); RED CELL DISTRIBUTION WIDTH 21.1 % (11.5-14.5); WHITE BLOOD COUNT 13.1 x10^3/uL (4.0-11.0)
[2017-09-09 05:39] LABS: ANION GAP 8 (6-14); BLOOD UREA NITROGEN 30 mg/dL (7-20); CALCIUM 7.7 mg/dL (8.5-10.1); CARBON DIOXIDE 25 mmol/L (21-32); CHLORIDE 106 mmol/L (98-107); CREATININE 1.8 mg/dL (0.6-1.0); GFR 26.9; GLUCOSE 88 mg/dL (70-99); POTASSIUM 4.2 mmol/L (3.5-5.1); SODIUM 139 mmol/L (136-145)
[2017-09-09] MEDS: SUCRALFATE 1 GM TABLET. PO ×5 (07:30→21:26)
[2017-09-09] MEDS: CALCIUM CARB/VIT D3 500/200 TABLET. PO ×2 (08:00→09:11)
[2017-09-09] MEDS: METOPROLOL TART IMMED RELEASE 25 MG TABLET. PO ×2 (09:00→21:26)
[2017-09-09] MEDS: MUPIROCIN 2 % TOPICAL CREAM 15GM TUBE. TP ×3 (09:00→21:29)
[2017-09-09] MEDS: PANTOPRAZOLE 40 MG TABLET.DR. PO ×2 (09:11→15:47)
[2017-09-09] MEDS: FOLIC ACID 1 MG TABLET. PO (09:11)
[2017-09-09] MEDS: BUMETANIDE 1 MG TABLET. PO ×2 (09:12→15:47)
[2017-09-09] MEDS: LEVOTHYROXINE 137 MCG TABLET PO (09:12)
[2017-09-09] MEDS: traMADol 50 MG TABLET PO (09:12)
[2017-09-09] MEDS: GABAPENTIN 300 MG CAPSULE. PO (09:12)
[2017-09-09] MEDS: FERROUS SULFATE 325 MG TABLET. PO (09:13)
[2017-09-09] MEDS: DIGOXIN 125 MCG TABLET. PO (09:13)
[2017-09-09] MEDS: buPROPion XL 150 MG TAB.ER.24H. PO (09:13)
[2017-09-09] MEDS: cefTRIAXone IV Push 1 GM VIAL. IVP (13:44)
[2017-09-09] MEDS ORDERED: cefTRIAXone IV Push 1 GM VIAL. IVP (15:00)
[2017-09-09] MEDS: cefTRIAXone IM 1 GM VIAL IM (15:39)
[2017-09-09] MEDS ORDERED: ENOXAPARIN 30 MG/0.3 ML SYRINGE. SQ (18:00)
[2017-09-09] MEDS: ATORVASTATIN CALCIUM 10 MG TABLET. PO (21:23)
[2017-09-09] MEDS: LACTOBACILLUS RHAMNOSUS GG 1 CAPSULE. PO (21:25)
[2017-09-09] MEDS: ENOXAPARIN 30 MG/0.3 ML SYRINGE. SQ (21:28)
[2017-09-09] MEDS: ZOLPIDEM 5 MG TABLET. PO (21:40)
[2017-09-10 03:56] LABS: ADD MAN DIFF? NO
[2017-09-10 04:11] LABS: BASO # 0.1 x10^3/uL (0.0-0.2); BASO % 0 % (0-3); EOS % 0 % (0-3); HEMATOCRIT 32.9 % (36.0-47.0); HEMOGLOBIN 10.6 g/dL (12.0-15.5); LYMPH # 0.9 x10^3/uL (1.0-4.8); LYMPH % 5 % (24-48); MEAN CORPUSCULAR HEMOGLOBIN 31 pg (25-35); MEAN CORPUSCULAR HGB CONC 32 g/dL (31-37); MEAN CORPUSCULAR VOLUME 95 fL (79-100); MONO # 0.8 x10^3/uL (0.0-1.1); MONO % 5 % (0-9); NEUT # 15.8 x10^3uL (1.8-7.7); NEUT % 90 % (31-73); PLATELET COUNT 229 x10^3/uL (140-400); RED BLOOD COUNT 3.45 x10^6/uL (3.50-5.40); RED CELL DISTRIBUTION WIDTH 20.7 % (11.5-14.5); WHITE BLOOD COUNT 17.6 x10^3/uL (4.0-11.0)
[2017-09-10 05:07] LABS: ANION GAP 8 (6-14); BLOOD UREA NITROGEN 33 mg/dL (7-20); CALCIUM 7.6 mg/dL (8.5-10.1); CARBON DIOXIDE 26 mmol/L (21-32); CHLORIDE 106 mmol/L (98-107); CREATININE 1.9 mg/dL (0.6-1.0); GFR 25.2; GLUCOSE 92 mg/dL (70-99); POTASSIUM 3.5 mmol/L (3.5-5.1); SODIUM 140 mmol/L (136-145)
[2017-09-10 06:36] LABS: SEDIMENTATION RATE 14 (0-25)
[2017-09-10] MEDS: SUCRALFATE 1 GM TABLET. PO ×4 (06:38→22:05)
[2017-09-10] MEDS: PANTOPRAZOLE 40 MG TABLET.DR. PO ×2 (06:38→16:16)
[2017-09-10] MEDS: LEVOTHYROXINE 137 MCG TABLET PO (06:39)
[2017-09-10] MEDS: CALCIUM CARB/VIT D3 500/200 TABLET. PO (08:48)
[2017-09-10] MEDS: METOPROLOL TART IMMED RELEASE 25 MG TABLET. PO ×2 (08:48→22:05)
[2017-09-10] MEDS: DIGOXIN 125 MCG TABLET. PO (08:50)
[2017-09-10] MEDS: FOLIC ACID 1 MG TABLET. PO (08:51)
[2017-09-10] MEDS: BUMETANIDE 1 MG TABLET. PO ×2 (08:51→16:16)
[2017-09-10] MEDS: buPROPion XL 150 MG TAB.ER.24H. PO (08:51)
[2017-09-10] MEDS: LACTOBACILLUS RHAMNOSUS GG 1 CAPSULE. PO ×2 (08:52→22:15)
[2017-09-10] MEDS: GABAPENTIN 300 MG CAPSULE. PO (08:52)
[2017-09-10] MEDS: FERROUS SULFATE 325 MG TABLET. PO (08:52)
[2017-09-10] MEDS: MUPIROCIN 2 % TOPICAL CREAM 15GM TUBE. TP ×3 (09:00→22:16)
[2017-09-10] MEDS: ATORVASTATIN CALCIUM 10 MG TABLET. PO (22:04)
[2017-09-10] MEDS: ZOLPIDEM 5 MG TABLET. PO (22:06)
[2017-09-10] MEDS: ENOXAPARIN 30 MG/0.3 ML SYRINGE. SQ (22:15)
[2017-09-11] MEDS: METOPROLOL TART IMMED RELEASE 25 MG TABLET. PO ×2 (09:30→23:37)
[2017-09-11] MEDS: SUCRALFATE 1 GM TABLET. PO ×5 (09:32→21:35)
[2017-09-11] MEDS: DIGOXIN 125 MCG TABLET. PO (09:32)
[2017-09-11] MEDS: buPROPion XL 150 MG TAB.ER.24H. PO (09:33)
[2017-09-11] MEDS: LEVOTHYROXINE 137 MCG TABLET PO (09:33)
[2017-09-11] MEDS: BUMETANIDE 1 MG TABLET. PO ×3 (09:33→17:25)
[2017-09-11] MEDS: CALCIUM CARB/VIT D3 500/200 TABLET. PO (09:34)
[2017-09-11] MEDS: PANTOPRAZOLE 40 MG TABLET.DR. PO ×3 (09:34→17:25)
[2017-09-11] MEDS: LACTOBACILLUS RHAMNOSUS GG 1 CAPSULE. PO ×2 (09:35→21:35)
[2017-09-11] MEDS: FOLIC ACID 1 MG TABLET. PO (09:36)
[2017-09-11] MEDS: GABAPENTIN 300 MG CAPSULE. PO (09:36)
[2017-09-11] MEDS: FERROUS SULFATE 325 MG TABLET. PO (09:37)
[2017-09-11] MEDS: MUPIROCIN 2 % TOPICAL CREAM 15GM TUBE. TP ×3 (09:39→21:38)
[2017-09-11] MEDS ORDERED: CEFEPIME HCL 1 GM in IV DEXTROSE 5% 50 ML IV (12:00)
[2017-09-11] MEDS: LINEZOLID 600 MG TABLET PO ×2 (13:39→21:35)
[2017-09-11] MEDS: CEFEPIME HCL IV Push 1 GM VIAL. IVP ×2 (15:18→21:50)
[2017-09-11 16:17] LABS: BILIRUBIN,URINE NEGATIVE (NEG); CLARITY,URINE CLEAR; COLOR,URINE YELLOW; GLUCOSE,URINE NEGATIVE (NEG); NITRITE,URINE NEGATIVE (NEG); PH,URINE 5.5; PROTEIN,URINE NEGATIVE (NEG-TRACE); UROBILINOGEN,URINE 0.2 mg/dL (0.2 mg/dL)
[2017-09-11 16:26] LABS: BACTERIA,URINE 0 /HPF (0-FEW); HYALINE CASTS, URINE FEW /HPF; RBC,URINE 0 /HPF (0-2); SQUAMOUS EPITHELIAL CELL,UR FEW /LPF; WBC,URINE 0 /HPF (0-4)
[2017-09-11] MEDS: ATORVASTATIN CALCIUM 10 MG TABLET. PO (21:35)
[2017-09-11] MEDS: ENOXAPARIN 30 MG/0.3 ML SYRINGE. SQ (21:35)
[2017-09-12] MEDS: LEVOTHYROXINE 137 MCG TABLET PO (05:56)
[2017-09-12] MEDS: CEFEPIME HCL IV Push 1 GM VIAL. IVP (05:59)
[2017-09-12 06:22] LABS: ADD MAN DIFF? NO
[2017-09-12 06:27] LABS: BASO # 0.1 x10^3/uL (0.0-0.2); BASO % 0 % (0-3); EOS % 0 % (0-3); HEMATOCRIT 36.9 % (36.0-47.0); HEMOGLOBIN 11.8 g/dL (12.0-15.5); LYMPH # 0.9 x10^3/uL (1.0-4.8); LYMPH % 5 % (24-48); MEAN CORPUSCULAR HEMOGLOBIN 31 pg (25-35); MEAN CORPUSCULAR HGB CONC 32 g/dL (31-37); MEAN CORPUSCULAR VOLUME 96 fL (79-100); MONO # 0.6 x10^3/uL (0.0-1.1); MONO % 4 % (0-9); NEUT # 15.7 x10^3uL (1.8-7.7); NEUT % 91 % (31-73); PLATELET COUNT 191 x10^3/uL (140-400); RED BLOOD COUNT 3.83 x10^6/uL (3.50-5.40); RED CELL DISTRIBUTION WIDTH 20.7 % (11.5-14.5); WHITE BLOOD COUNT 17.3 x10^3/uL (4.0-11.0)
[2017-09-12 06:48] LABS: ANION GAP 9 (6-14); BLOOD UREA NITROGEN 43 mg/dL (7-20); CALCIUM 7.6 mg/dL (8.5-10.1); CARBON DIOXIDE 26 mmol/L (21-32); CHLORIDE 103 mmol/L (98-107); CREATININE 2.6 mg/dL (0.6-1.0); GFR 17.6; GLUCOSE 88 mg/dL (70-99); POTASSIUM 4.2 mmol/L (3.5-5.1); SODIUM 138 mmol/L (136-145)
[2017-09-12] MEDS: traMADol 50 MG TABLET PO (07:04)
[2017-09-12] MEDS: MUPIROCIN 2 % TOPICAL CREAM 15GM TUBE. TP ×2 (08:18→16:10)
[2017-09-12] MEDS: buPROPion XL 150 MG TAB.ER.24H. PO (08:20)
[2017-09-12] MEDS: PANTOPRAZOLE 40 MG TABLET.DR. PO ×2 (08:21→16:10)
[2017-09-12] MEDS: LINEZOLID 600 MG TABLET PO (08:21)
[2017-09-12] MEDS: DIGOXIN 125 MCG TABLET. PO (08:22)
[2017-09-12] MEDS: GABAPENTIN 300 MG CAPSULE. PO (08:23)
[2017-09-12] MEDS: FERROUS SULFATE 325 MG TABLET. PO (08:23)
[2017-09-12] MEDS: METOPROLOL TART IMMED RELEASE 25 MG TABLET. PO (08:23)
[2017-09-12] MEDS: LACTOBACILLUS RHAMNOSUS GG 1 CAPSULE. PO (08:23)
[2017-09-12] MEDS: CALCIUM CARB/VIT D3 500/200 TABLET. PO (08:24)
[2017-09-12] MEDS: SUCRALFATE 1 GM TABLET. PO ×3 (08:24→16:10)
[2017-09-12] MEDS: FOLIC ACID 1 MG TABLET. PO (08:24)
[2017-09-12] MEDS: BUMETANIDE 1 MG TABLET. PO ×2 (08:25→16:00)
[2017-09-12 09:56] LABS: POC GLUCOSE 91 mg/dL (70-99)
[2017-09-12 10:09] LABS: BASE EXCESS ABG -2 mmol/L (-3-3); HCO3 ABG 22 mmol/L (21-28); PCO2 ABG 34 mmHg (35-46); PH ABG 7.42 (7.35-7.45); PO2 ABG 259 mmHg (65-108); SAT O2 ABG 97 % (92-99)
[2017-09-12 10:10] LABS: FIO2 ABG 100%
[2017-09-12] MEDS: IV NORMAL SALINE 1000ML BAG 1,000 ML IV ×3 (10:30→15:30)
[2017-09-12 12:16] LABS: HEMATOCRIT 33.8 % (36.0-47.0); HEMOGLOBIN 11.1 g/dL (12.0-15.5); MEAN CORPUSCULAR HEMOGLOBIN 31 pg (25-35); MEAN CORPUSCULAR HGB CONC 33 g/dL (31-37); MEAN CORPUSCULAR VOLUME 95 fL (79-100); PLATELET COUNT 179 x10^3/uL (140-400); RED BLOOD COUNT 3.54 x10^6/uL (3.50-5.40); RED CELL DISTRIBUTION WIDTH 20.7 % (11.5-14.5); WHITE BLOOD COUNT 17.4 x10^3/uL (4.0-11.0)
[2017-09-12 12:21] LABS: MAGNESIUM 1.8 mg/dL (1.8-2.4)
[2017-09-12 12:27] LABS: INR 1.5 (0.8-1.1); PROTHROMBIN TIME PATIENT 17.5 SEC (11.7-14.0)
[2017-09-12] MEDS: metroNIDAZOLE 500 MG TABLET PO (13:00)
[2017-09-12] MEDS: NOREPINEPHRIN 8MG/250ML PREMIX 250 ML IV (13:01)
[2017-09-12 13:08] LABS: DIG 2.3 ng/mL (0.9-2.0)
[2017-09-12 13:19] LABS: LACTIC ACID 1.6 mmol/L (0.4-2.0)
[2017-09-12] MEDS ORDERED: IOHEXOL 240 MG/ML 50ML VIAL. (15:09)
[2017-09-12] MEDS ORDERED: CONTRAST GIVEN. MC (15:15)
[2017-09-12] MEDS: IOHEXOL 240 MG/ML 50ML VIAL. PO (15:15)
[2017-09-12] MEDS ORDERED: MORPHINE SULFATE 4 MG/ML DISP.SYRIN. IV ×2 (20:45)
[2017-09-12] MEDS ORDERED: SCOPOLAMINE 1.5MG PATCH. TD (21:00)
[2017-09-12] MEDS ORDERED: CEFEPIME HCL IV Push 1 GM VIAL. IVP (21:00)
[2017-09-13 09:23] LABS: MRSA BY PCR Negative (Negative)
[2017-09-14] MEDS ORDERED: ERGOCALCIFEROL (VITAMIN D2) 50,000 UNIT CAPSULE. PO (09:00)
[2017-10-07] MEDS ORDERED: CYANOCOBALAMIN (VITAMIN B-12) 1,000 MCG/ML VIAL IM (09:00)
== END 2017-09-12 21:15 | disposition expired | DRG 871 ==
LOC: 1 WEST ICU 09-12 10:50 → ER 09:53 → 4 NORTH 12:09
PROC: 02H633Z Insertion of Infusion Device into Right Atrium, Percutaneous Approach (ICD-10-PCS; principal; 2017-09-12)
PROC: B246ZZ4 Ultrasonography of Right and Left Heart, Transesophageal (ICD-10-PCS; 2017-09-12)
DX: A41.9 Sepsis, unspecified organism (principal); G93.41 Metabolic encephalopathy; R65.21 Severe sepsis with septic shock; N17.9 Acute kidney failure, unspecified; K28.4 Chronic or unspecified gastrojejunal ulcer with hemorrhage; I13.0 Hypertensive heart and chronic kidney disease with heart failure and stage 1 through stage 4 chronic kidney disease, or unspecified chronic kidney disease; I50.32 Chronic diastolic (congestive) heart failure; I48.1 Persistent atrial fibrillation; L03.115 Cellulitis of right lower limb; G62.9 Polyneuropathy, unspecified; S80.921A Unspecified superficial injury of right lower leg, initial encounter; N18.3 Chronic kidney disease, stage 3 (moderate); D64.9 Anemia, unspecified; E86.9 Volume depletion, unspecified; E87.6 Hypokalemia; E03.9 Hypothyroidism, unspecified; E78.00 Pure hypercholesterolemia, unspecified; E78.5 Hyperlipidemia, unspecified; G47.33 Obstructive sleep apnea (adult) (pediatric); H35.30 Unspecified macular degeneration; I73.9 Peripheral vascular disease, unspecified; Z96.649 Presence of unspecified artificial hip joint; Z96.653 Presence of artificial knee joint, bilateral; K21.9 Gastro-esophageal reflux disease without esophagitis; Z51.5 Encounter for palliative care; X58.XXXA Exposure to other specified factors, initial encounter; I35.1 Nonrheumatic aortic (valve) insufficiency; Z82.49 Family history of ischemic heart disease and other diseases of the circulatory system; Z87.11 Personal history of peptic ulcer disease; Z90.710 Acquired absence of both cervix and uterus; Z98.84 Bariatric surgery status; Y93.89 Activity, other specified; Y92.89 Other specified places as the place of occurrence of the external cause; Y99.8 Other external cause status; Z88.8 Allergy status to other drugs, medicaments and biological substances; Z88.1 Allergy status to other antibiotic agents; Z91.041 Radiographic dye allergy status; Q82.8 Other specified congenital malformations of skin
CPT/HCPCS: 36415; 36556; 70450; 71045; 71250; 74150; 76937; 80048; 80162; 81001; 82805; 82962; 83605; 83735; 84145; 85007; 85025; 85027; 85610; 85651; 87040; 87086; 87641; 93005; 93308; 93320; 93325; 93971; 97162-GP; 97166-GO; 97530-GO; 97530-GP; 99285; 99285-25; C1892; J0692; J0696; J1650; J7030